=== PATIENT | female | born 1970 | race Caucasian/White ===

== ENCOUNTER → 2018-08-06 | Outpatient (CLI) | payer SELFPAY ==
--- NOTE | 2018-08-09 09:14 | MM ---
Reason for exam: additional evaluation requested from abnormal screening. Last mammogram was performed 1 month ago. History: Patient is postmenopausal and is nulliparous. Taking estrogen. Taking progesterone. Physical Findings: Nurse Summary: 1 x 1cm nodule in the right breast at 1 o'clock (nurse ts). MG 3D Work Up W/Cad LT ML and spot compression MLO view(s) were taken of the left breast. Prior study comparison: July 08, 2018, bilateral MG screening mammo w CAD. July 06, 2015, left breast MG 3d work up w/cad LT. The breast tissue is heterogeneously dense. This may lower the sensitivity of mammography. There is no discrete abnormality on compression or tomosynthesis. These results were verbally communicated with the patient and result sheet given to the patient on 08/06/18. ASSESSMENT: Benign, BI-RAD 2 RECOMMENDATION: Return to routine screening mammogram schedule for both breasts. Manage patient on a clinical basis.
== END | disposition home or self-care (01) ==
LOC: RADMAMWWP 08:14
PROVIDERS: ATTEND Family Medicine
DX: R92.8 Other abnormal and inconclusive findings on diagnostic imaging of breast (principal)
CPT/HCPCS: 77061; 77065